=== PATIENT | male | born 1935 | race Caucasian/White ===

== ENCOUNTER 2021-09-21 17:55 | Emergency (ER) | payer MEDICARE, BC ==
[~2021-09-21] VITALS: Ht 165.1 cm; Wt 66.2 kg
[2021-09-21] MEDS ORDERED: ASPI81TA31 PO (18:07)
--- NOTE | 2021-09-21 18:15 | NUR ---
Dr Lovett at bedside for MSE.
[2021-09-21] MEDS ORDERED: TDAP DIPH,PERTUSS,TET VAC/PF 0.5 ML DISP.SYRIN IM ONE ×2 (18:30→18:43)
--- NOTE | 2021-09-21 18:44 | NUR ---
Patient discharged to home in stable condition. Written and verbal after care instructions given. Patient verbalizes understanding of instructions. Stressed follow up or return to ER for worsening s/s. Ambulated out of ED in steady gait.
[2021-09-21 18:45] VITALS: BP 140/70
== END 2021-09-21 18:47 | disposition home or self-care (01) ==
LOC: ER 17:58
DX: S60.511A Abrasion of right hand, initial encounter (principal); W27.2XXA Contact with scissors, initial encounter; Y93.9 Activity, unspecified; Y92.89 Other specified places as the place of occurrence of the external cause; I10 Essential (primary) hypertension; E11.9 Type 2 diabetes mellitus without complications; Z79.82 Long term (current) use of aspirin
CPT/HCPCS: 90715; A4663